=== PATIENT | female | born 1945 | race Caucasian/White ===

== ENCOUNTER 2022-10-17 07:10 | Inpatient (IN) ==
--- NOTE | 2022-09-20 10:52 | PAT Medication Instructions ---
Medication Instructions Date of Service September 20, 2022 Home Medications Medication Instructions Recorded Oxycodone HCl 5 - 10 mg PO Q4H PRN Pain 30 days 02/14/16 #90 tabs Oxycodone HCl 5 - 10 mg PO Q4H PRN Pain Tumeric Tab 1 tab PO QAM albuterol 90 mcg/actuation aerosol inhaler 90 mcg inhalation QID PRN Shortness Of Breath Or Wheezing albuterol sulfate 90 mcg/actuation aerosol inhaler (ProAir HFA) 2 puff inhalation QID PRN Shortness Of Breath Or Wheezing alendronate 70 mg-cholecalciferol (vitamin D3) 2,800 unit tablet (Fosamax Plus D) 1 tab PO WK amlodipine 5 mg tablet 5 mg PO QAM cholecalciferol (vitamin D3) 25 mcg (1,000 unit) chewable tablet (Vitamin D3) 25 mcg PO QAM citalopram 40 mg tablet 40 mg PO QAM docusate sodium 50 mg capsule 50 mg PO QAM lidocaine 3 % topical cream 1 applic topical BID PRN Pain loratadine 10 mg tablet (Claritin) 10 mg PO QAM montelukast 10 mg tablet (Singulair) 10 mg PO QAM multivitamin 1 tab PO QAM simvastatin 20 mg tablet 20 mg PO QAM tiotropium bromide 1.25 mcg/actuation mist for inhalation (Spiriva Respimat) 2 puff inhalation QAM PRN Shortness Of Breath Or Wheezing ASK your prescriber and surgeon alendronate 70 mg-cholecalciferol (vitamin D3) 2,800 unit tablet (Fosamax Plus D) 1 tab PO WK STOP taking 2 weeks before surgery (or as soon as possible if surgery is within 2 weeks) Tumeric Tab 1 tab PO QAM STOP taking 24 hours before surgery lidocaine 3 % topical cream 1 applic topical BID PRN Pain DO NOT take the morning of surgery cholecalciferol (vitamin D3) 25 mcg (1,000 unit) chewable tablet (Vitamin D3) 25 mcg PO QAM docusate sodium 50 mg capsule 50 mg PO QAM loratadine 10 mg tablet (Claritin) 10 mg PO QAM montelukast 10 mg tablet (Singulair) 10 mg PO QAM multivitamin 1 tab PO QAM Take morning of surgery With a small sip of water, OTHERWISE NOTHING TO EAT OR DRINK AFTER MIDNIGHT: Oxycodone HCl 5 - 10 mg PO Q4H PRN Pain (if needed) albuterol 90 mcg/actuation aerosol inhaler 90 mcg inhalation QID PRN Shortness Of Breath Or Wheezing (use if needed; please bring rescue inhaler with you to hospital day of surgery if possible) albuterol sulfate 90 mcg/actuation aerosol inhaler (ProAir HFA) 2 puff inhalation QID PRN Shortness Of Breath Or Wheezing (if needed) amlodipine 5 mg tablet 5 mg PO QAM citalopram 40 mg tablet 40 mg PO QAM simvastatin 20 mg tablet 20 mg PO QAM tiotropium bromide 1.25 mcg/actuation mist for inhalation (Spiriva Respimat) 2 puff inhalation QAM PRN Shortness Of Breath Or Wheezing (if needed) Take evening before surgery Oxycodone HCl 5 - 10 mg PO Q4H PRN Pain (if needed) albuterol 90 mcg/actuation aerosol inhaler 90 mcg inhalation QID PRN Shortness Of Breath Or Wheezing (if needed) albuterol sulfate 90 mcg/actuation aerosol inhaler (ProAir HFA) 2 puff inhalation QID PRN Shortness Of Breath Or Wheezing (if needed) Other Notes If you have any questions please call us at [phone] or [phone] or [phone] or [phone]
--- NOTE | 2022-09-27 09:31 | Anesthesiology Consultation ---
Date of Service September 27, 2022 Assessment & Plan (1) Encounter for pre-operative examination: COVID screening: Per assessment on 09/27: No known COVID-19 positive contacts or current COVID-19 related symptoms. Travel screen negative. Patient vaccinated. At surgeon discretion if preop Covid testing being done. Chart Review Chart Review: Acceptable Risk for Surgery and Patient seen in Pre Admission Testing Teaching & Discussion Pre-Anesthesia Teaching/Discussion Notes: Instructed NPO after midnight before surgery,except medications with 15 cc of water. Medication instructions provided according to the PAT guidelines. History Surgery Operation Date: 10/17/22 10:05 Proposed Procedures p L1-L2, L2-L3 Decompression and T12-L3 Fusion, Spinal Cord Monitoring - Leonidas Hunter, Height/Weight Height: 5 ft Weight: 66.9 kg Allergies Allergy/AdvReac Type Severity Reaction Status Date / Time ceftriaxone [From Rocephin] Allergy Unknown Red man Verified 09/27/22 10:12 syndrome codeine AdvReac Mild N/V Verified 09/20/22 09:33 bee venom protein (honey bee) AdvReac Unknown syncope Unverified 09/20/22 09:33 Medications Home Medications Medication Instructions Recorded Confirmed Last Taken Oxycodone HCl 5 - 10 mg PO Q4H PRN Pain 30 days 02/14/16 09/19/22 Unknown #90 tabs Tumeric Tab 1 tab PO QAM 09/19/22 09/19/22 Unknown albuterol 90 mcg/actuation aerosol 90 mcg inhalation QID PRN 09/19/22 09/19/22 Unknown inhaler Shortness Of Breath Or Wheezing albuterol sulfate 90 mcg/actuation 2 puff inhalation QID PRN 09/19/22 09/19/22 Unknown aerosol inhaler (ProAir HFA) Shortness Of Breath Or Wheezing alendronate 70 mg-cholecalciferol 1 tab PO WK 09/19/22 09/19/22 Unknown (vitamin D3) 2,800 unit tablet (Fosamax Plus D) amlodipine 5 mg tablet 5 mg PO QAM 09/19/22 09/19/22 Unknown cholecalciferol (vitamin D3) 25 25 mcg PO QAM 09/19/22 09/19/22 Unknown mcg (1,000 unit) chewable tablet (Vitamin D3) citalopram 40 mg tablet 40 mg PO QAM 09/19/22 09/19/22 Unknown docusate sodium 50 mg capsule 50 mg PO QAM 09/19/22 09/19/22 Unknown lidocaine 3 % topical cream 1 applic topical BID PRN Pain 09/19/22 09/19/22 Unknown loratadine 10 mg tablet (Claritin) 10 mg PO QAM 09/19/22 09/19/22 Unknown montelukast 10 mg tablet 10 mg PO QAM 09/19/22 09/19/22 Unknown (Singulair) multivitamin 1 tab PO QAM 09/19/22 09/19/22 Unknown simvastatin 20 mg tablet 20 mg PO QAM 09/19/22 09/19/22 Unknown tiotropium bromide 1.25 2 puff inhalation QAM PRN 09/19/22 09/19/22 Unknown mcg/actuation mist for inhalation Shortness Of Breath Or Wheezing (Spiriva Respimat) Past Medical History Medical History COPD (chronic obstructive pulmonary disease) Controlled History of COVID-19 09/2020- fever, cough, SOB, aches, fatigue > resolved Hx of bladder cancer GBC (Approximately 2014) Follows w/[facility] onc [place] yearly Hx of renal calculi Hypertension Lumbar stenosis with neurogenic claudication Exercise / Class Metabolic Activity III < 4 Walking/Shop/Light housework (one FS (no CP, + SOB)) Past Family History Family History Other No family history of adverse response to anesthesia Past Surgical History Surgical History History of hip replacement RIGHT History of lumbosacral spine surgery Hx of cervical spine surgery Hx of colonoscopy Hx of ovarian cyst REMOVED Past Anesthesia History No Hx of Anesthesia Complications and No Family Hx of Anesthesia Complications History of PONV No Hx of PONV and No Hx of Motion Sickness Social History Smoking Status: Former smoker tobacco type: cigarettes Do You Dip or Chew Tobacco: No Smoking End Date: Quit 26 years ago Hx Alcohol Use: No Hx Substance Use: No substance use type: does not use Review of Systems Patient denies chest pain, shortness of breath, fever, chills, cough, wheezing, palpitations. Physical Exam Vital Signs VITALS BP 161/90 P 92 TEMP 98.2 SP02 95%RA RESP 18 PHYSICAL Mildly decreased cervical extension range of motion. Full TMJ range of motion. TMD 4 finger breaths Mallampati Score 2 Dentition: full upper plate, edentulous Lungs: clear throughout to auscultation Cardiac: regular rate and rhythm, no murmurs noted Spine: normal Carotid arteries: negative bruit Extremities: no edema Lab Results Anesthesia Preop Results Results Anesthesia Widget: WBC 5.89 K/ul (4.8-10.8) 09/27/22 Hgb 13.5 g/dl (12.0-16.0) 09/27/22 Hct 40.9 % (34.1-44.9) 09/27/22 Plt 233 K/uL (130-400) 09/27/22 Na 142 mmol/L (136-145) 09/27/22 K 4.1 mmol/L (3.5-5.1) 09/27/22 Cl 106 mmol/L (98-107) 09/27/22 CO2 30 mmol/L (21-32) 09/27/22 BUN 12 mg/dl (6-23) 09/27/22 Creat 0.77 mg/dl (0.6-1.2) 09/27/22 Glucose Level 89 mg/dl (70-99(Fasting)) 09/27/22 PT 11.2 Seconds (9.0-12.0) 09/27/22 PTT 29.9 Seconds (21.0-31.0) 09/27/22 INR 1.1 (0.9-1.1) 09/27/22 Urine Color Yellow 09/27/22 Urine Appearance Clear (Clear) 09/27/22 Urine pH 6.5 (4.5-7.5) 09/27/22 Urine Specific [place] 1.016 (1.000-1.030) 09/27/22 Urine Protein Negative (Negative) 09/27/22 Urine Glucose (UA) Negative (Negative) 09/27/22 Urine Ketones Negative (Negative) 09/27/22 Urine Blood Trace (Negative) H 09/27/22 Urine Nitrite Negative (Negative) 09/27/22 Urine Bilirubin Negative (Negative) 09/27/22 Urine Urobilinogen Negative (Negative) 09/27/22 Urine Leukocyte Esterase Negative (Negative) 09/27/22 Urine WBC (Auto) 1-5 /hpf (0-5) 09/27/22 Urine RBC (Auto) 5-10 /hpf (0-4) H 09/27/22 Urine Hyaline Casts (Auto) 1-5 /lpf (0-5) 09/27/22 Urine Epithelial Cells (Auto) >30 /lpf (0-5) H 09/27/22 Urine Bacteria (Auto) Negative (Negative) 09/27/22 Blood Type A Positive 09/27/22 Antibody Screen NEGATIVE 09/27/22 Testing Electrocardiogram Date: 09/27/22 Findings: + NSR @ (88) Chest X-Ray Date: 09/27/22 FINDINGS: PA and lateral chest radiographs are compared to study dated 01/11/2016. The heart is top normal for projection noting atherosclerotic calcification of the thoracic aorta. Chronic interstitial thickening similar to previous. There is minimal bibasilar atelectasis. The lungs and pleural spaces are otherwise clear. There is no pneumothorax. The skeletal structures are osteopenic. The bony thorax appears intact. Degenerative change and scoliosis are noted in the spine. Fusion hardware is noted in the lower cervical spine and in the lumbar spine. IMPRESSION: No active disease in the chest. COVID-19 Risk Screen Screening Information COVID-19 Screen Date: 09/27/22 Exposure 21 Days Family/Household +COVID Last 21 Days: No Exposure 10 Days Any COVID Exposure Last 10 Days: No Symptoms Last 10 Days Experienced COVID Sx Last 10 Days: No + COVID 0-90 Days COVID + in Last 0-90 Days: No
[~2022-10-17 07:10] MED LIST: ACETAMINOPHEN 500 MG TAB PO SCH; ALLERGY Noted to ORDERED Medication SCH; CLINDAMYCIN/D5W 900 MG/50 ML BAG IV SCH; CeleBREX 200 MG CAP PO SCH; GABAPENTIN 300 MG CAP PO SCH; LR 15ML/HR IV SCH; ceFAZolin 2000MG 2,000 MG/15 ML SYR IV SCH
[2022-10-17] MEDS ORDERED: fentaNYL citrate 100 MCG/2 ML VIAL ONE ×2 (08:23→10:08)
[2022-10-17] MEDS ORDERED: MIDAZOLAM HCL 1 MG/ML 2ML VIAL ONE (08:23)
[2022-10-17] MEDS ORDERED: PROPOFOL IV EMULSION 10 MG/ML 20 ML VIAL IV ONE (08:23)
[2022-10-17] MEDS ORDERED: ONDANSETRON INJ 2 MG/ML 2 ML VIAL IV PRN ×2 (08:25→13:54)
[2022-10-17] MEDS ORDERED: ePHEDrine sulfate 50 MG/ML AMP IV PRN (08:25)
[2022-10-17] MEDS ORDERED: ATROPINE SULFATE 0.1 MG/ML 10ML SYR IV PRN (08:25)
--- NOTE | 2022-10-17 08:57 | History & Physical Bridge Note ---
Date of Service October 17, 2022 History & Physical Bridge Note I have examined the patient, reviewed the History & Physical and in the interval since the performance of the History & Physical I have noted the following changes of clinical significance: no changes noted
--- NOTE | 2022-10-17 08:58 | History & Physical Report ---
Date of Service October 17, 2022 Assessment & Plan (1) Lumbar stenosis with neurogenic claudication: Plan: L1-L2, L2-L3 decompression and T12-L3 fusion History of Present Illness Chief Complaint: Back and leg pain Primary Care Provider: Mitchell Cortez MD This is a 77-year-old female known to me the presents with current persistent back and leg pain. Failing course of nonoperative care she is here for surgical invention. Allergies Allergy/AdvReac Type Severity Reaction Status Date / Time ceftriaxone [From Rocephin] Allergy Unknown Red man Verified 10/17/22 07:51 syndrome codeine AdvReac Mild N/V Verified 10/17/22 07:51 bee venom protein (honey bee) AdvReac Unknown syncope Verified 10/17/22 07:51 Home Medications Medication Instructions Recorded Confirmed Type Oxycodone HCl 5 - 10 mg PO Q4H PRN Pain 30 days 02/14/16 09/19/22 Rx #90 tabs Tumeric Tab 1 tab PO QAM 09/19/22 10/17/22 History albuterol 90 mcg/actuation aerosol 90 mcg inhalation QID PRN 09/19/22 10/17/22 History inhaler Shortness Of Breath Or Wheezing albuterol sulfate 90 mcg/actuation 2 puff inhalation QID PRN 09/19/22 10/17/22 History aerosol inhaler (ProAir HFA) Shortness Of Breath Or Wheezing alendronate 70 mg-cholecalciferol 1 tab PO WK 09/19/22 10/17/22 History (vitamin D3) 2,800 unit tablet (Fosamax Plus D) amlodipine 5 mg tablet 5 mg PO QAM 09/19/22 10/17/22 History cholecalciferol (vitamin D3) 25 25 mcg PO QAM 09/19/22 10/17/22 History mcg (1,000 unit) chewable tablet (Vitamin D3) citalopram 40 mg tablet 40 mg PO QAM 09/19/22 10/17/22 History docusate sodium 50 mg capsule 50 mg PO QAM 09/19/22 10/17/22 History lidocaine 3 % topical cream 1 applic topical BID PRN Pain 09/19/22 10/17/22 History loratadine 10 mg tablet (Claritin) 10 mg PO QAM 09/19/22 10/17/22 History montelukast 10 mg tablet 10 mg PO QAM 09/19/22 10/17/22 History (Singulair) multivitamin 1 tab PO QAM 09/19/22 10/17/22 History simvastatin 20 mg tablet 20 mg PO QAM 09/19/22 10/17/22 History tiotropium bromide 1.25 2 puff inhalation QAM PRN 09/19/22 10/17/22 History mcg/actuation mist for inhalation Shortness Of Breath Or Wheezing (Spiriva Respimat) Past Med/Surg History Medical History COPD (chronic obstructive pulmonary disease) Controlled History of COVID-19 09/2020- fever, cough, SOB, aches, fatigue > resolved Hx of bladder cancer GBC (Approximately 2014) Follows w/[facility] onc [place] yearly Hx of renal calculi Hypertension Lumbar stenosis with neurogenic claudication Surgical History History of hip replacement RIGHT History of lumbosacral spine surgery Hx of cervical spine surgery Hx of colonoscopy Hx of ovarian cyst REMOVED Family History Other No family history of adverse response to anesthesia Social History Smoking Status: Former smoker Smoking End Date: Quit 26 years ago; Second Hand Exposure: No; Do You Dip or Chew Tobacco: No; Tobacco Cessation Education Requested by Patient: No Hx Alcohol Use: No Hx Substance Use: No Preferred Language: Occitan Communication Ability: Effective Hospice Coordinator Required: No Beliefs That Will Affect Care: None Current Living Situation: Alone Other Information That Helps Us Care for You: No Feels Safe at Home: Yes Safety Concerns: Feels Safe At This Time Assistive Devices: Cane, Denture - Upper and Glasses Physical Exam Physical Exam: Patient is alert and oriented Heart regular rhythm Lungs clear Results & Data Results & Data ([facility]) Vital Signs (Past 12 Hours) Vital Signs Temp Pulse Resp BP Pulse Ox O2 Del Method 10/17/22 07:49 36.6 C 92 H 20 173/102 H 96 Room Air
[2022-10-17] MEDS ORDERED: CLINDAMYCIN 900 MG/D5W 50 ML BAG IV ONE (09:04)
[2022-10-17] MEDS ORDERED: ceFAZolin 330 MG/ML 1 GM VIAL ONE (09:30)
[2022-10-17] MEDS ORDERED: BUPIVACAINE/EPINEPHRINE 0.25% 1:200,000 30 ML VIAL ONE (09:30)
[2022-10-17] MEDS ORDERED: NEOSTIGMINE METHYLSULFATE 1 MG/ML 10ML VIAL ONE ×2 (10:27→10:28)
[2022-10-17] MEDS ORDERED: ROCURONIUM BROMIDE 10 MG/ML 5 ML VIAL IV ONE (10:27)
[2022-10-17] MEDS ORDERED: GLYCOPYRROLATE 0.2 MG/ML VIAL ONE (10:28)
[2022-10-17] MEDS ORDERED: ONDANSETRON INJ 2 MG/ML 2 ML VIAL ONE (10:28)
[2022-10-17] MEDS ORDERED: LIDOCAINE 2% MPF LOCAL 5 ML VIAL INFIL ONE (10:28)
[2022-10-17] MEDS ORDERED: DEXAMETHASONE SOD INJ 4 MG/ML VIAL ONE (10:28)
[2022-10-17] MEDS ORDERED: PHENYLEPHRINE 100MCG/ML 5ML SYR ONE (10:28)
[2022-10-17] MEDS ORDERED: SURGICEL ABSORB HEMOSTAT 2IN X 14IN TOP ONE (11:02)
[2022-10-17] MEDS ORDERED: FLOSEAL HEMOSTATIC MATRIX 10ML TOP ONE (11:27)
--- NOTE | 2022-10-17 11:30 | Operative Report ---
Post Operative Report Pre & Post Diagnosis Operation Date: 10/17/22 09:15 Pre-Op Diagnosis: Lumbar spinal stenosis with neurogenic claudication Post-Op Diagnosis: Same I identified the patient and participated in the time-out.: Yes Procedure Operation Date: 10/17/22 09:15 Actual Procedures #1 lumbar decompression bilateral medial facetectomies and foraminotomies L1-L2 L2-L3. #2 posterior spinal fusion T12-L3. #3 placement posterior instrumentation T12-L2 including connectors to the L3-L4 harinder. #4 interbody fusion L2-L3. #5 placement spiral 8 mm cage at L2-L3. #6 placement locally harvested morselized autograft posterior gutters. #7 placement of I factor combined with V toss in the posterior gutters T12-L3. Surgeon Leonidas Hunter, Branch Manager Trainee Misa Montano Estimated Blood Loss 250 Findings Consistent with Post-Op Diagnosis Specimens None Indications This is a 77-year-old female presents with above-mentioned diagnosis after failed course of nonoperative care is here for surgical intervention. Description of Procedure Patient was met with identified informed consent obtained. Patient was then taken to the operative suite underwent a patient placed in a prone position the [place] table top Gilles frame. All bony prominences well-padded eyes inspected to ensure no external pressure placed upon the bed at this point the thoracolumbar spine was prepped and draped in a sterile fashion. Sharp dissection with the assistance pericardial form down to and exposing the lamina and transverse processes of T12 L1-L2 and instrumentation at L3-L4 bilaterally. From caudal to cephalad fashion complete laminectomy of L2 partial laminectomy of L1 was performed including bilateral medial facetectomies and foraminotomies addressing severe spinal stenosis. Pedicle screws were then placed in T12 L1-L2 bilaterally with the assistance of fluoroscopy. Connectors were then placed at the L2-L3 harinder and locked into position. By way of a transfemoral approach and left complete discectomy of L2-L3 was then performed endplates curetted to subcortical any bone and a 8 x 22 mm spiral cage was tapped in position. The proper size rods were then contoured placed and locked into position bilaterally. The transverse processes of T12 L1-L2 and L3 were burred to subcortical bleeding bone. Infuse collagen sponge from mass graft locally harvested morselized autograft was placed in the posterior gutters. 15 round SARA inserted. The incision was then closed with 1 Vicryl the fascia 2-0 Vicryl subcutaneously and 4 Monocryl for final skin closure. Steri-Strips dressings placed. Patient waken taken to PACU in stable condition. Please note spinal cord monitoring was utilized at the procedure no changes noted. Lastly Misa Montano was present out the entire surgeon while the patient positioning complex portion of the surgery and final skin closure. I attest to the content of the Intraoperative Record and any orders documented therein. Any exceptions are noted below.
[2022-10-17] MEDS: fentaNYL citrate 100 MCG/2 ML VIAL IV PRN ×4 (12:03→12:18)
--- NOTE | 2022-10-17 12:05 | Fluoroscopy Report ---
FL lumbar spine 2-3V CLINICAL HISTORY: L1-L2 L2-L3 DECOMPRESSION AND T12-L3 FUSION COMPARISON STUDY: Lumbar spine fluoroscopic images February 12, 2016. FLUOROSCOPY TIME: 37 seconds. FLUOROSCOPIC IMAGES: 3 FINDINGS: Exact localization is not possible given partial visualization of the spine however these i mages demonstrate suspected L2-L3 discectomy with interbody spacer placement. Images demonstrate mult ilevel decompression with pedicle screw fusion. Pedicle screws likely begin at the T12 level. Inferio r extent of the fusion is not imaged on this exam. IMPRESSION: Fluoroscopy provided during discectomy, posterior decompression and bilateral pedicle sc rew fusion, as described above. ACT 112: Negative or not required by law. Electronically signed by: Joo Lemon M.D. 10/17/2022 12:04 PM
[2022-10-17] MEDS: HYDROmorphone INJ 2 MG/ML SYR/VIAL IV PRN ×2 (12:23→12:45)
--- NOTE | 2022-10-17 13:47 | Anesthesiology Progress Note ---
Date of Service October 17, 2022 Anesthesia Post Procedure Vital Signs Vital Signs: Temp Pulse Pulse Resp BP Pulse Ox O2 Del Method 10/17/22 13:35 107 H 18 151/89 H 96 Nasal Cannula 10/17/22 13:05 97 H 12 152/76 H 96 Nasal Cannula 10/17/22 12:35 36.2 C L 99 H 13 149/77 H 96 Nasal Cannula 10/17/22 12:25 99 H 14 166/85 H 96 Nasal Cannula 10/17/22 12:15 102 H 13 162/91 H 96 Nasal Cannula 10/17/22 12:05 103 H 19 158/109 H 90 Room Air 10/17/22 11:55 110 H 11 L 148/93 H 100 Oxymask 10/17/22 11:47 36.8 C 116 H 16 172/99 H 100 Oxymask 10/17/22 07:49 36.6 C 92 H 20 173/102 H 96 Room Air O2 Flow Rate 10/17/22 13:35 2 10/17/22 13:05 2 10/17/22 12:35 2 10/17/22 12:25 2 10/17/22 12:15 2 10/17/22 12:05 10/17/22 11:55 4 10/17/22 11:47 10 10/17/22 07:49 Pain Intensity Back: Pain Intensity: 2 Transfer of Care Handoff Completed per policy Notes Mental Status: alert / awake / arousable and participated in evaluation Patient Amnestic to Procedure: Yes Nausea / Vomiting: adequately controlled Pain: adequately controlled Airway Patency, RR, SpO2: stable & adequate BP & HR: stable & adequate Hydration State: stable & adequate Anesthetic Complications: no major complications apparent and Pt Satisfied with anesthetic care
[2022-10-17] MEDS ORDERED: hydrOXYzine HCl 25 MG TAB PO PRN (13:54)
[2022-10-17] MEDS ORDERED: DO NOT ADMINISTER FLU VACCINE PRN (13:54)
[2022-10-17] MEDS ORDERED: ONDANSETRON 4 MG OD TAB PO PRN (13:54)
[2022-10-17] MEDS ORDERED: MAGNESIUM HYDROXIDE SUSP 30 ML UDC PO PRN (13:54)
[2022-10-17] MEDS ORDERED: traMADol HCL 50 MG TABLET PO PRN (13:54)
[2022-10-17] MEDS ORDERED: LORazepam 0.5 MG in SYRINGE 0 ML IV PRN (13:54)
[2022-10-17] MEDS ORDERED: FAMOTIDINE 20 MG TAB PO PRN (13:54)
[2022-10-17] MEDS ORDERED: ALUMINUM/MAGNESIUM SUSP 30 ML UDC PO PRN (13:54)
[2022-10-17] MEDS ORDERED: NALOXONE HCL 0.4 MG/1 ML VIAL/CARP IV PRN (13:54)
[2022-10-17] MEDS ORDERED: PROMETHAZINE HCL 12.5 MG in SODIUM CHLORIDE 0.9% 50 ML IV PRN (13:54)
[2022-10-17] MEDS ORDERED: NON-FORMULARY MEDICATION (Albuterol 90 mcg/actuation Aerosol) INH PRN (13:54)
[2022-10-17] MEDS ORDERED: HYDROmorphone INJ 1 MG/ML SYRINGE IV PRN (13:54)
[2022-10-17] MEDS ORDERED: ACETAMINOPHEN 1,000 MG/100 ML VIAL IV PRN (13:54)
[2022-10-17] MEDS ORDERED: HYDROmorphone INJ 0.5 MG/0.5 ML SYR IV PRN (13:54)
[2022-10-17] MEDS ORDERED: bisacodyL 10 MG SUPP PR PRN (13:54)
[2022-10-17] MEDS ORDERED: METOCLOPRAMIDE HCL INJ 5 MG/ML 2 ML VIAL IV PRN (13:54)
[2022-10-17] MEDS ORDERED: SOD PHOSPHATE/SOD BIPHOSPHATE ENEMA 132 ML BTL PR PRN (13:54)
[2022-10-17] MEDS ORDERED: LORazepam 0.5 MG TAB PO PRN (13:54)
[2022-10-17] MEDS ORDERED: diphenhydrAMINE Capsule 25 MG CAP PO PRN (13:54)
[2022-10-17] MEDS ORDERED: DO NOT ADMINISTER PNEUMOCOCCAL VACCINE PRN (13:54)
[2022-10-17] MEDS ORDERED: ACETAMINOPHEN 500 MG TAB PO PRN (13:54)
[2022-10-17] MEDS ORDERED: UMECLIDINIUM BROMIDE 62.5MCG/BLISTER 7 PUFFS/INHALER INH PRN (14:21)
[2022-10-17] MEDS: SODIUM CHLORIDE 0.9% 1000ML 1,000 ML IV SCH (15:02)
--- NOTE | 2022-10-17 15:21 | Hospitalist Consultation ---
Date of Consultation October 17, 2022 Assessment & Plan (1) Lumbar stenosis with neurogenic claudication: POD #0 - Lumbar decompression/fusion by Dr. Hunter - Pain control, PT/OT, DVT prophylaxis per primary service - Discussed importance of incentive spirometry with patient - Labs in AM (2) COPD (chronic obstructive pulmonary disease): (3) Hypertension: (4) Dyslipidemia: (5) Osteoporosis: Plan Continue other home medications as appropriate. Pt seen and reviewed with collaborating physician, Dr. Kent. Plan of care discussed and as outlined above. Thank you for this consultation. We will continue to follow this patient with you. A member of the [facility] Hospitalist team is available 22/05 via [employer]. Please don't hesitate to reach out with questions. Veronika Rodriguez PA-C History of Present Illness Reason for Consultation: Post-operative Medical Management Requesting Physician: Dr. Leonidas Hunter Attending Physician: Leonidas Hunter, DO History of Present Illness This is a 77 y/o female with a PMH of COPD, HTN, dyslipidemia, prior bladder cancer, prior breast cancer, osteoporosis, and lumbar spinal stenosis who underwent lumbar decompression and fusion today by Dr. Hunter. Pt had prior lumbar surgery in 2016, which she reports helped for several years. However, over the last several months, she notes gradual return of lower back pain, then developed left sciatic pain that eventually radiated all the way to her left ankle. She had the sensation that her left leg may give out on her but it never did. She had some numbness and tingling in the left ankles. Her symptoms failed a course of non-operative management so she underwent her second lumbar surgery today. Currently, she reports some incisional pain but declines need for pain medications saying she only takes meds when pain is severe. Current pain is different than her pre-op pain. She had some post-operative nausea initially but no vomiting. This seems to be improving and she is currently hungry, asking for something to eat. She hx a of COPD for which she uses prn Spiriva and albuterol - only uses these with activity. Currently, she denies SOB, CP, palpitations. No LOPEZ or dizziness. Allergies Allergy/AdvReac Type Severity Reaction Status Date / Time ceftriaxone [From Rocephin] Allergy Unknown Red man Verified 10/17/22 07:51 syndrome codeine AdvReac Mild N/V Verified 10/17/22 07:51 bee venom protein (honey bee) AdvReac Unknown syncope Verified 10/17/22 07:51 Home Medications Medication Instructions Recorded Confirmed Type Oxycodone HCl 5 - 10 mg PO Q4H PRN Pain 30 days 02/14/16 09/19/22 Rx #90 tabs Tumeric Tab 1 tab PO QAM 09/19/22 10/17/22 History albuterol sulfate 90 mcg/actuation 2 puff inhalation QID PRN 09/19/22 10/17/22 History aerosol inhaler (ProAir HFA) Shortness Of Breath Or Wheezing alendronate 70 mg-cholecalciferol 1 tab PO WK 09/19/22 10/17/22 History (vitamin D3) 2,800 unit tablet (Fosamax Plus D) amlodipine 5 mg tablet 5 mg PO QAM 09/19/22 10/17/22 History cholecalciferol (vitamin D3) 25 25 mcg PO QAM 09/19/22 10/17/22 History mcg (1,000 unit) chewable tablet (Vitamin D3) citalopram 40 mg tablet 40 mg PO QAM 09/19/22 10/17/22 History docusate sodium 50 mg capsule 100 mg PO QAM 09/19/22 10/17/22 History lidocaine 3 % topical cream 1 applic topical BID PRN Pain 09/19/22 10/17/22 History loratadine 10 mg tablet (Claritin) 10 mg PO QAM 09/19/22 10/17/22 History montelukast 10 mg tablet 10 mg PO QAM 09/19/22 10/17/22 History (Singulair) multivitamin 1 tab PO QAM 09/19/22 10/17/22 History simvastatin 20 mg tablet 20 mg PO QAM 09/19/22 10/17/22 History tiotropium bromide 1.25 2 puff inhalation QAM PRN 09/19/22 10/17/22 History mcg/actuation mist for inhalation Shortness Of Breath Or Wheezing (Spiriva Respimat) Patient History Medical History (Updated 10/17/22 @ 17:03 by Leann Rodriguez PA-C) Chronic allergic rhinitis COPD (chronic obstructive pulmonary disease) Controlled Dyslipidemia History of breast cancer History of COVID-19 09/2020- fever, cough, SOB, aches, fatigue > resolved Hx of bladder cancer [facility] (Approximately 2014) Follows w/[facility] onc Octaviano yearly Hx of renal calculi Hypertension Lumbar stenosis with neurogenic claudication Major depression, recurrent Osteoporosis Surgical History History of appendectomy History of hip replacement RIGHT History of hysterectomy 2002 - fibroids History of left cataract surgery 07/26/22 History of lumbosacral spine surgery History of partial mastectomy of left breast History of right cataract surgery 08/09/22 Hx of cervical spine surgery Hx of colonoscopy Hx of ovarian cyst REMOVED Family History (Updated 10/17/22 @ 15:14 by Leann Rodriguez PA-C) Other Cancer No family history of adverse response to anesthesia Social History Smoking Status: Former smoker Smoking End Date: Quit 26 years ago; Second Hand Exposure: No; Do You Dip or Chew Tobacco: No; Tobacco Cessation Education Requested by Patient: No Hx Alcohol Use: No Hx Substance Use: No Preferred Language: Armenian Communication Ability: Effective Clinical Social Work Aide Required: No Beliefs That Will Affect Care: None Current Living Situation: Alone Other Information That Helps Us Care for You: No Feels Safe at Home: Yes Safety Concerns: Feels Safe At This Time Assistive Devices: Cane, Denture - Upper and Glasses Review of Systems Review of Systems: All systems reviewed & are unremarkable except as noted in HPI & below Constitutional: no fever, no chills and no sweats Eyes: no diplopia and no worsening vision Ear, Nose, Mouth, Throat: no nasal congestion, no nasal discharge and no sore throat Respiratory: no cough and no dyspnea Cardiovascular: no chest pain, no palpitations and no edema Gastrointestinal: + nausea; no abdominal pain and no vomiting Genitourinary: Romero in place Musculoskeletal: + back pain and + radicular pain (prior to surgery) Integumentary: no rash and no yellowing of the skin Neurologic: as per Subjective / HPI; no dizziness and no headache(s) Psychiatric: no depression and no anxiety Physical Exam Constitutional: well developed and well nourished; no acute distress Eyes: + anicteric sclerae ENMT: external ear and nose normal, oropharynx normal Neck: trachea midline Respiratory: no respiratory distress and no labored breathing Auscultation: lungs clear to auscultation bilaterally; no rales, no rhonchi and no wheezes Cardiovascular: Rate/Rhythm: regular rate and regular rhythm Vessels: dorsalis pedis pulses present and radial pulses present Extremities: no pedal edema Gastrointestinal (Abdomen): Inspection/Auscultation: normal bowel sounds; abdomen not distended Percussion/Palpation: abdomen soft; abdomen nontender Musculoskeletal: Head/Neck/Chest: normocephalic, head atraumatic and neck supple Skin: no jaundice SARA drain in place with sanguinous drainage Neurologic: Moving toes bilaterally with sensation to light touch intact and equal Psychiatric: A+Ox3, euthymic affect Results & Data Results & Data ([facility]) Vital Signs (Past 12 Hours) Vital Signs Temp Pulse Pulse Resp BP Pulse Ox O2 Del Method 10/17/22 14:46 36.8 C 96 H 18 130/84 97 Nasal Cannula 10/17/22 14:36 Nasal Cannula 10/17/22 13:35 107 H 18 151/89 H 96 Nasal Cannula 10/17/22 13:05 97 H 12 152/76 H 96 Nasal Cannula 10/17/22 12:35 36.2 C L 99 H 13 149/77 H 96 Nasal Cannula 10/17/22 12:25 99 H 14 166/85 H 96 Nasal Cannula 10/17/22 12:15 102 H 13 162/91 H 96 Nasal Cannula 10/17/22 12:05 103 H 19 158/109 H 90 Room Air 10/17/22 11:55 110 H 11 L 148/93 H 100 Oxymask 10/17/22 11:47 36.8 C 116 H 16 172/99 H 100 Oxymask 10/17/22 07:49 36.6 C 92 H 20 173/102 H 96 Room Air O2 Flow Rate 10/17/22 14:46 1 10/17/22 14:36 1 10/17/22 13:35 2 10/17/22 13:05 2 10/17/22 12:35 2 10/17/22 12:25 2 10/17/22 12:15 2 10/17/22 12:05 10/17/22 11:55 4 10/17/22 11:47 10 10/17/22 07:49 Laboratory Results 10/17/22 10/17/22 07:42 Unknown SARS-CoV-2, RNA, NAAT NEGATIVE Blood Type A Positive Antibody Screen NEGATIVE Crossmatch See Detail Medications Administered Acetaminophen (Acetaminophen 500 Mg Tab) 1,000 mg PO PREOP LEILA Stop: 10/17/22 18:00 Last Admin: 10/17/22 08:01 Dose: 1,000 mg Documented By: TDM Celecoxib (Celebrex 200 Mg Cap) 200 mg PO PREOP LEILA Stop: 10/17/22 18:00 Last Admin: 10/17/22 08:01 Dose: 200 mg Documented By: TDM Fentanyl Citrate (Fentanyl Citrate 100 Mcg/2 Ml Vial) 25 mcg IV Q5M PRN PRN Reason: PACU Use Only-Pain Stop: 10/17/22 16:25 Last Admin: 10/17/22 12:18 Dose: 25 mcg Documented By: Admin: 10/17/22 12:13 Dose: 25 mcg Documented By: Admin: 10/17/22 12:08 Dose: 25 mcg Documented By: Admin: 10/17/22 12:03 Dose: 25 mcg Documented By: [facility] Gabapentin (Gabapentin 300 Mg Cap) 300 mg PO PREOP LEILA Stop: 10/17/22 18:00 Last Admin: 10/17/22 08:01 Dose: 300 mg Documented By: TDM Hydromorphone HCl (Hydromorphone Inj 2 Mg/Ml Syr/Vial) 0.5 mg IV Q5M PRN PRN Reason: PACU Use Only-Pain Stop: 10/17/22 16:25 Last Admin: 10/17/22 12:45 Dose: 0.25 mg Documented By: Admin: 10/17/22 12:23 Dose: 0.25 mg Documented By: [facility] Lactated Ringer's (Lr) 1,000 mls @ 15 mls/hr IV .Q24H LEILA Stop: 10/18/22 05:59 Last Infusion: 10/17/22 09:26 Dose: 0 mls/hr Documented By: [facility] Admin: 10/17/22 08:16 Dose: 15 mls/hr Documented By: TDM Clindamycin Phosphate (Cleocin/D5w) 900 mg in 50 mls @ 100 mls/hr IV PREOP LEILA Stop: 10/18/22 05:59 Last Infusion: 10/17/22 13:12 Dose: 0 mls/hr Documented By: Admin: 10/17/22 09:26 Dose: 100 mls/hr Documented By: SED Sodium Chloride (Nss 1000ml) 1,000 mls @ 100 mls/hr IV .Q10H LEILA Stop: 11/16/22 13:53 Last Admin: 10/17/22 15:02 Dose: 100 mls/hr Documented By: MIREYA Discontinued Medications Bupivacaine HCl/Epinephrine Bitart (Bupivacaine/Epinephrine 0.25% 1:200,000 30 Ml Vial) Confirm Administered Dose 30 ml .ROUTE .STK-MED ONE Stop: 10/17/22 09:31 Last Admin: 10/17/22 09:55 Dose: 30 ml Documented By: GMMonique Cefazolin Sodium (Cefazolin 330 Mg/Ml 1 Gm Vial) Confirm Administered Dose 990 mg .ROUTE .STK-MED ONE Stop: 10/17/22 09:31 Last Admin: 10/17/22 11:00 Dose: 990 mg Documented By: GMMonique Clindamycin Phosphate (Clindamycin 900 Mg/D5w 50 Ml Bag) Confirm Administered Dose 900 mg IV .STK-MED ONE Stop: 10/17/22 09:05 Last Admin: 10/17/22 09:26 Dose: 900 mg Documented By: SED Miscellaneous (Surgicel Absorb Hemostat 2in X 14in) 1 each TOP ONCE ONE Stop: 10/17/22 11:03 Last Admin: 10/17/22 11:04 Dose: 1 each Documented By: GMMonique Miscellaneous ( Floseal Hemostatic Matrix 10ml) 10 ml TOP ONCE ONE Stop: 10/17/22 11:28 Last Admin: 10/17/22 11:28 Dose: 20 ml Documented By: GMMonique
[2022-10-17] MEDS: CLINDAMYCIN/D5W 600 MG/50 ML BAG IV SCH (15:40)
--- NOTE | 2022-10-17 17:01 | Communication Note ---
Date of Service: October 17, 2022 Patient is seen and examined at bedside. Patient underwent lumbar surgery for lumbar spinal stenosis with neurogenic claudication by Dr. Hunter today. patient is doing well postoperatively. She has minimal pain at surgical site. Was nauseous earlier today but later resolved. Denies any chest pain, shortness of breath, dizziness, abdominal pain. Physical Exam: Vitals signs as noted above General Appearance:Moderately built and nourished, no apparent distress Head: normocephalic, Atraumatic Eyes: normal inspection, EOMI Neck: supple, Trachea midline Respiratory/Chest: Normal breath sounds, CTA, No accessory muscle use Cardiovascular: S1, S2, No murmur Abdomen/GI:Soft, Non tender, Bowel sounds present Back: Surgical site in dressing,+ drain Extremities/Musculoskeletal:normal inspection, no edema Neurologic/Psych:AAOX3, grossly no focal neurological deficits Skin: normal color, warm Lumbar spinal stenosis with neurogenic claudication S/P Lumbar surgery by on 10/17/22 Pain control, DVT prophylaxis, wound care as per primary team PT OT as able Continue incentive spirometer Monitor for post OP anemia Bowel regimen to prevent constipation Wean off of supplemental oxygen as able COPD Hypertension Hyperlipidemia Mood disorder Stable Continue home medications I personally reviewed the record. Patient is interviewed and examined at bedside. Patient's care is coordinated with Leann Rodriguez PA-C. Please refer to the documentation above for details of patient's presentation and for discussion of other issues.
[2022-10-17] MEDS: DOCUSATE SODIUM/SENNA 50/8.6MG TAB PO SCH (19:26)
[2022-10-18] MEDS: SODIUM CHLORIDE 0.9% 1000ML 1,000 ML IV SCH (01:30)
[2022-10-18] MEDS: CLINDAMYCIN/D5W 600 MG/50 ML BAG IV SCH (01:31)
[2022-10-18] MEDS ORDERED: CHLORASEPTIC 1.4% SOLN 180 ML BTL MT PRN (01:40)
[2022-10-18] MEDS: POLYETHYLENE (MIRALAX) 17 GM PACK PO SCH ×3 (05:23→18:19)
[2022-10-18] MEDS: dexAMETHasone 6 MG in SYRINGE 0 ML IV SCH (08:16)
[2022-10-18] MEDS: SIMVASTATIN 20 MG TAB PO SCH (08:18)
[2022-10-18] MEDS: CEROVITE ADV FORMULA TAB PO SCH (08:18)
[2022-10-18] MEDS: LORATADINE 10 MG TAB PO SCH (08:18)
[2022-10-18] MEDS: CHOLECALCIFEROL 1,000 UNITS 25 MCG TAB PO SCH (08:18)
[2022-10-18] MEDS: CITALOPRAM 40 MG TAB PO SCH (08:18)
[2022-10-18] MEDS: amLODIPine BESYLATE 5 MG TAB PO SCH (08:18)
[2022-10-18 09:03] LABS: Basophils # (auto) 0.01 K/uL (0-0.2); Basophils % (auto) 0.1 %; Hematocrit (blood only) 33.1 % (34.1-44.9); Hemoglobin 10.6 g/dl (12.0-16.0); Immature Granulocytes # (auto) 0.06 K/uL (0.00-0.02); Immature Granulocytes % (auto) 0.4 %; Lymphocytes # (auto) 1.15 K/uL (1.2-3.4); Lymphocytes % (auto) 8.2 %; Mean Corpuscular Hemoglobin 29.5 pg (25.0-34.0); Mean Corpuscular Volume 92.2 fL (80.0-100.0); Mean Platelet Volume 12.8 fL (9.4-12.3); Monocytes # (auto) 1.02 K/uL (0.24-0.82); Monocytes % (auto) 7.2 %; Neutrophils # (auto) 11.83 K/uL (1.4-6.5); Neutrophils % (auto) 84.1 %; Platelet Count 260 K/uL (130-400); RDW Standard Deviation 43.9 fL (36.4-46.3); Red Blood Count 3.59 M/uL (3.93-5.22); White Blood Count 14.07 K/ul (4.8-10.8)
[2022-10-18 09:33] LABS: BUN Creatinine Ratio 18.1 (10-20); Calcium 8.8 mg/dl (8.5-10.1); Creatinine Clr Calc Pharmacy 49.1 ml/min; Est GFR (African American) 79.4 ml/min; Est GFR (Non-African American) 68.5 ml/min
[2022-10-18] MEDS: oxyCODONE HCL IR 5 MG TAB (IMMEDIATE RELEASE) PO PRN (13:40)
--- NOTE | 2022-10-18 14:57 | Hospitalist Progress Note ---
Date of Service October 18, 2022 Assessment & Plan (1) Lumbar stenosis with neurogenic claudication: Plan: Lumbar spinal stenosis with neurogenic claudication S/P Lumbar surgery by on 10/17/22 Acute blood loss anemia Pain control, DVT prophylaxis, wound care as per primary team PT OT as able Continue incentive spirometer Monitor for post OP anemia Bowel regimen to prevent constipation Saturating well on room air No indication for blood transfusion currently Doing well with PT OT Sinus tachycardia Likely secondary to pain Pain control Monitor (2) COPD (chronic obstructive pulmonary disease): Plan: No signs of exacerbation Continue home inhalers (3) Hypertension: Plan: Continue amlodipine Monitor (4) Dyslipidemia: Plan: On statin (5) Osteoporosis: Plan DVT prophylaxis Disposition As per primary team Status Full code Admission and Anticipated Discharge Date Admission Date: October 17, 2022 Subjective Patient is seen and examined at bedside Ambulating in hallway with PT earlier today Doing well postoperatively Admits to have some back pain at surgical site Denies any chest pain, shortness of breath, dizziness, nausea, abdominal pain Review of Systems Review of Systems: All systems reviewed & are unremarkable except as noted in Subjective Physical Exam Physical Exam: Physical Exam: Vitals signs as noted above General Appearance:Moderately built and nourished, no apparent distress Head: normocephalic, Atraumatic Eyes: normal inspection, EOMI Neck: supple, Trachea midline Respiratory/Chest: Normal breath sounds, CTA, No accessory muscle use Cardiovascular: S1, S2, No murmur Abdomen/GI:Soft, Non tender, Bowel sounds present Back: Surgical site in dressing,+ drain Extremities/Musculoskeletal:normal inspection, no edema Neurologic/Psych:AAOX3, grossly no focal neurological deficits Skin: normal color, warm Results & Data Results & Data ([facility]) Vital Signs (Past 12 Hours) Vital Signs Temp Pulse Resp BP Pulse Ox O2 Del Method 10/18/22 08:19 Room Air 10/18/22 11:44 37.4 C 111 H 16 131/78 95 Room Air 10/18/22 08:15 36.8 C 110 H 18 122/72 98 Room Air Laboratory Results Short CBC 10/18/22 Range/Units 08:39 WBC 14.07 H (4.8-10.8) K/ul Hgb 10.6 L (12.0-16.0) g/dl Hct 33.1 L (34.1-44.9) % Plt Count 260 (130-400) K/uL BMP 10/18/22 08:39 Sodium 133 L Potassium 4.0 Chloride 101 Carbon Dioxide 27 BUN 15 Creatinine 0.83 Glucose 150 H Calcium 8.8
[2022-10-18] MEDS: ALBUTEROL HFA 8 GM INHALER INH PRN (18:40)
[2022-10-18] MEDS: DOCUSATE SODIUM/SENNA 50/8.6MG TAB PO SCH (19:30)
[2022-10-18] MEDS ORDERED: LORazepam 0.5 mg IV INJ IV PRN (19:51)
[2022-10-18] MEDS ORDERED: MONTELUKAST SODIUM 10 MG TABLET PO SCH (21:00)
[2022-10-19] MEDS: POLYETHYLENE (MIRALAX) 17 GM PACK PO SCH ×3 (01:25→12:37)
[2022-10-19] MEDS: ALBUTEROL HFA 8 GM INHALER INH PRN (01:34)
[2022-10-19] MEDS: oxyCODONE HCL IR 5 MG TAB (IMMEDIATE RELEASE) PO PRN ×2 (03:46→12:40)
[2022-10-19 07:13] LABS: Hematocrit (blood only) 28.3 % (34.1-44.9); Hemoglobin 9.1 g/dl (12.0-16.0); Mean Corpuscular Hemoglobin 29.6 pg (25.0-34.0); Mean Corpuscular Hgb Conc 32.2 g/dL (32.0-36.0); Mean Corpuscular Volume 92.2 fL (80.0-100.0); Mean Platelet Volume 13.1 fL (9.4-12.3); Platelet Count 210 K/uL (130-400); RDW Coefficient of Variation 13.2 % (11.5-14.5); RDW Standard Deviation 44.7 fL (36.4-46.3); Red Blood Count 3.07 M/uL (3.93-5.22); White Blood Count 12.93 K/ul (4.8-10.8)
[2022-10-19 07:24] LABS: BUN Creatinine Ratio 16.9 (10-20); Calcium 8.3 mg/dl (8.5-10.1); Creatinine Clr Calc Pharmacy 57.4 ml/min; Est GFR (African American) 95.9 ml/min; Est GFR (Non-African American) 82.7 ml/min; Potassium 4.3 mmol/L (3.5-5.1)
--- NOTE | 2022-10-19 08:29 | Discharge Summary ---
Date of Service October 19, 2022 Admission HPI Per Admitting Provider This is a 77-year-old female known to me the presents with current persistent back and leg pain. Failing course of nonoperative care she is here for surgical invention. Admission Exam (Per Admitting) Constitutional average body habitus Eyes normal visual gregory by confrontation ENMT external ear and nose normal, oropharynx normal Neck normal visual inspection Respiratory normal respiratory effort Cardiovascular Extremities: normal capillary refill Gastrointestinal (Abdomen) Inspection/Auscultation: abdomen normal to inspection Musculoskeletal Spine: + pain with thoraco-lumbar ROM and + lumbar spinal tenderness Extremities: extremities normal to inspection Skin no rashes, warm and dry Neurologic normal touch/pain/proprioception and moves all extremities Psychiatric A+Ox3, euthymic affect Eye Contact: good eye contact Speech: normal rate/rhythm/volume of speech Discharge Data Consultations 10/17/22 13:54 Consult Hospitalist Routine Procedures Performed Operation Date: 10/17/22 09:15 Actual Procedures p lumbar decompression bilateral medial facetectomies and foraminotomies L1-L2 L2-L3, posterior spinal fusion T12-L3, placement posterior instrumentation T12- L2 including connectors to the L3-L4 harinder, interbody fusion L2-L3, placement spiral 8 mm cage at L2-L3, placement locally harvested morselized autograft posterior gutters, placement of I factor combined with V toss in the posterior gutters T12-L3(Not Applicable) - Leonidas Hunter DO Hospital Course (1) Lumbar stenosis with neurogenic claudication: Patient is being discharged home on postoperative day 2 status post T12-L3 decompression instrumented fusion. She had an uneventful hospital course. Lab values have been stable. Pain is controlled. She is passing flatus. She is making progress daily with physical therapy. Discharge Instructions ACTIVITY RECOMMENDATIONS: SELF CARE INSTRUCTIONS AFTER THORACIC/LUMBAR FUSIONS 1. You may walk to your tolerance. It is good exercise for your legs and back. Expect some back and intermittent leg aches and pains. 2. You may perform "counter-top" level activities (make a sandwich, minda with a project, etc.). 3. No bending or lifting of more than 10 pounds or back twisting of any nature (roll like a log when turning in bed). 4. You may ride in a car for 20-30 minutes at a time. No driving until after your first visit with your doctor. 5. Frequent changes of position and restricting sitting to 30 minutes at a time will help limit the amount of back spasms and stiffness you may experience. 6. You may discontinue the use of ambulatory aids (cane, crutches, etc.) once your strength and confidence allow. 7. You may painter helper spray the shower and let water strike your incision when you arrive home at least once daily. Do not take a tub bath, sit in a hot tub or go into a swimming pool until after your first recheck in the office. SPECIAL CARE INSTRUCTIONS: VERY IMPORTANT TO READ AND REVIEW A. Your surgical incision has been closed with a cosmetic suture under the skin that will dissolve in about 6 weeks. In 14 days, you can use a pair of clean scissors and cut the suture that is left outside of the skin at the ends of your incision. 1. The small skin tapes can be removed 7 days after surgery if they have not fallen off by that point. 2. You may keep the wound open to air as much as possible to promote healing after post-op day number 5 unless told otherwise by your doctor. 3. If you think the wound looks like it is becoming infected (redness or worsening drainage) and/or you are experiencing fever, chill or worsening back pain and muscle spasms, contact the office so that we may evaluate you as soon as possible. B. Complications are uncommon, but please contact us if you have any signs or symptoms of: 1. wound infection (fever higher than 102.5 degrees F, redness, separation of wound, drainage, or increasing pain from the incision) 2. blood clots in legs (pain, swelling, redness and warmth in legs) 3. urinary tract infection (fever higher than 102.5 degrees F, burning upon urination or increased frequency of urination) 4. nerve problems (inability to walk on your toes or heels, numbness, loss of bowel or bladder control) 5. any other symptoms that concern you C. Please call the office at if you have any concerns or questio ns about your operation or recovery. D. No smoking! Smoking drastically decreases the chance of a solid fusion. E. Do not take any anti-inflammatory medications (Indocin, Advil, Motrin, Aspirin, Naprosyn, etc.) as these may inhibit the chance of a solid fusion. Tylenol is okay to take for pain. MANAGING PAIN AFTER SPINAL SURGERY 1. Narcotic medication is intended for short-term use and will be provided for surgical pain. Surgical pain usually lasts for a period of 4-6 weeks. Narcotic medication includes Percocet, Vicodin, Darvocet, Tylenol #3 or Lortab. 2. Longer-term pain is more appropriately treated with non-narcotic medication such as Tylenol ES. 3. Muscle spasm is not appropriately treated with narcotics. Muscle relaxers such as Soma, Flexeril or Skelaxin can be used along with Tylenol ES. 4. Remember that we all live with some "aches and pains". This is not unusual or uncommon after an injury or as we get older. a. Back pain is expected and may include muscle spasms for 4 to 6 weeks after surgery. The pain should gradually improve. If the pain worsens for no apparent reason, please contact the office. b. Intermittent leg pain may also be experienced and should not be concerned about unless it worsens for no apparent reason. If so, please contact the office. 5. We will provide appropriate medication within the normal guidelines of their prescribed use. We will also be very cautious and aware of potential abuse and extended duration of patients' medication needs. a. Pain medications are for your comfort and to assist with sleep and rest so that the tissue can heal. They are not provided in order to return to normal activity and should not be used through the day. To do so or worsening pain at night can result from ongoing tissue damage and development of tolerance to the prescribed medicine. 6. Please allow 2-3 days to process refills. Prescriptions will not be mailed but must be picked up at the office. FOLLOW UP VISIT: Keep your scheduled follow-up appointment. Any questions, please call the office at .
[2022-10-19] MEDS: amLODIPine BESYLATE 5 MG TAB PO SCH (08:34)
[2022-10-19] MEDS: CHOLECALCIFEROL 1,000 UNITS 25 MCG TAB PO SCH (08:34)
[2022-10-19] MEDS: dexAMETHasone 6 MG in SYRINGE 0 ML IV SCH (08:34)
[2022-10-19] MEDS: SIMVASTATIN 20 MG TAB PO SCH (08:34)
[2022-10-19] MEDS: CITALOPRAM 40 MG TAB PO SCH (08:34)
[2022-10-19] MEDS: LORATADINE 10 MG TAB PO SCH (08:34)
[2022-10-19] MEDS: CEROVITE ADV FORMULA TAB PO SCH (08:34)
--- NOTE | 2022-10-19 11:20 | Hospitalist Progress Note ---
Date of Service October 19, 2022 Assessment & Plan (1) Lumbar stenosis with neurogenic claudication: Plan: Lumbar spinal stenosis with neurogenic claudication S/P Lumbar surgery by on 10/17/22 Acute blood loss anemia Pain control, DVT prophylaxis, wound care as per primary team PT OT as able Continue incentive spirometer Monitor for post OP anemia Bowel regimen to prevent constipation Saturating well on room air Advised to follow up with PCP in 1 week upon discharge Sinus tachycardia Likely secondary to pain Pain control Monitor (2) COPD (chronic obstructive pulmonary disease): Plan: No signs of exacerbation Continue home inhalers (3) Hypertension: Plan: Continue amlodipine Monitor (4) Dyslipidemia: Plan: On statin (5) Osteoporosis: Plan DVT prophylaxis Disposition As per primary team Status Full code Admission and Anticipated Discharge Date Admission Date: October 17, 2022 Subjective Patient is seen and examined at bedside feels well today Back pain is controlled Eager to get discharged Denies any chest pain, shortness of breath, dizziness, nausea, abdominal pain Review of Systems Review of Systems: All systems reviewed & are unremarkable except as noted in Subjective Physical Exam Physical Exam: Physical Exam: Vitals signs as noted above General Appearance:Moderately built and nourished, no apparent distress Head: normocephalic, Atraumatic Eyes: normal inspection, EOMI Neck: supple, Trachea midline Respiratory/Chest: Normal breath sounds, CTA, No accessory muscle use Cardiovascular: S1, S2, No murmur Abdomen/GI:Soft, Non tender, Bowel sounds present Back: Surgical site in dressing,+ drain Extremities/Musculoskeletal:normal inspection, no edema Neurologic/Psych:AAOX3, grossly no focal neurological deficits Skin: normal color, warm Results & Data Results & Data ([facility]) Vital Signs (Past 12 Hours) Vital Signs Temp Pulse Pulse Resp BP Pulse Ox O2 Del Method 10/19/22 10:30 36.8 C 96 H 102 H 18 143/78 H 95 10/19/22 07:00 36.8 C 102 H 18 143/78 H 95 Room Air 10/19/22 01:34 107 H 18 97 Room Air Laboratory Results Short CBC 10/19/22 Range/Units 06:36 WBC 12.93 H (4.8-10.8) K/ul Hgb 9.1 L (12.0-16.0) g/dl Hct 28.3 L (34.1-44.9) % Plt Count 210 (130-400) K/uL [facility] 10/19/22 06:36 Sodium 139 Potassium 4.3 Chloride 106 Carbon Dioxide 31 BUN 12 Creatinine 0.71 Glucose 102 H Calcium 8.3 L
--- NOTE | 2022-10-20 23:21 | Electrocardiogram Report ---
Test Reason : Blood Pressure : / mmHG Vent. Rate : 119 BPM Atrial Rate : 119 BPM P-R Int : 176 ms QRS Dur : 074 ms QT Int : 314 ms P-R-T Axes : 000 056 -49 degrees QTc Int : 441 ms Sinus tachycardia Nonspecific T wave abnormality Abnormal ECG When compared with ECG of 27-SEP-2022 10:30, No significant change Confirmed by Ion Hernandez ([id number]) on 10/20/2022 11:20:46 PM Referred By: Leonidas Hunter Confirmed By:Ion Hernandez
== END 2022-10-19 12:58 | disposition home or self-care (01) | DRG 454 ==
LOC: ASU 07:10 → PACUINP 11:34 → 3N 14:24